=== PATIENT | female | born 2005 ===

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

== ENCOUNTER 2024-08-15 18:57 | Emergency (ER) | payer OTHER ==
[~2024-08-15] VITALS: Ht 157.5 cm; Wt 59.0 kg
[~2024-08-15 18:57] MED LIST changes: +CEPH250SUA PO
[2024-08-15 20:29] VITALS: BP 149/94
[2024-08-15] MEDS ORDERED: ASPERFLEX1 EACH TOP (20:40)
== END 2024-08-15 20:55 | disposition home or self-care (01) ==
LOC: ER 18:57
DX: R51.9 Headache, unspecified (principal); Z79.899 Other long term (current) drug therapy
CPT/HCPCS: 99283

== ENCOUNTER → 2025-06-20 | Outpatient (CLI) | payer OTHER ==
[~2025-06-20] MED LIST changes: +ASPERFLEX1 EACH TOP
[2025-06-20 20:45] LABS: Candida Group, PCR NOT DETECTED (NOT DETECT); Candida glabrata-krusei, PCR NOT DETECTED (NOT DETECT)
[2025-06-20 22:37] LABS: Bacterial Vaginosis PCR Positive (NEGATIVE)
[2025-06-25 08:37] LABS: APTIMA MEDIA TYPE Urine; C. TRACHOMATIS BY TMA Negative (Negative); N. GONORRHOEAE BY TMA Negative (Negative); T. VAGINALIS BY TMA Negative (Negative)
== END ==
LOC: LAB SHORT 18:30 → LAB 18:30
PROVIDERS: Physician Assistant
DX: N76.0 Acute vaginitis (principal)
CPT/HCPCS: 81515; 87491; 87591; 87661

== ENCOUNTER → 2025-07-09 | Outpatient (CLI) | payer OTHER | LOC: LAB SHORT 08:00 → LAB 08:00 | DX: Z86.19 Personal history of other infectious and parasitic diseases (principal) | CPT/HCPCS: 87338 ==